=== PATIENT | male | born 1970 | race Caucasian/White ===

== ENCOUNTER 2021-06-29 21:57 | Inpatient (IN) | payer OTHER ==
[~2021-06-29] VITALS: Ht 185.4 cm; Wt 99.8 kg
[2021-06-29 22:00] VITALS: BP 149/71
--- NOTE | 2021-06-29 22:12 | NUR ---
TO ER BED 5
--- NOTE | 2021-06-29 22:15 | NUR ---
Patient being evaluated by physician at bedside.
--- NOTE | 2021-06-29 22:15 | NUR ---
51 Y/O MALE CAME TO THE ED C/O LEFT FLANK PAIN. PT STATES, "I'M IN SO MUCH PAIN, AND IT STARTED TODAY AND I'VE NEVER HAD THIS PAIN BEFORE. 10/10 LEFT SIDE IN THE LOWER BACK AREA PAIN. AND I HAD NAUSEA AND VOMITTING TODAY. " PT IS VERY RESTLESS, DENIES FEVER, CHILLS. PT IS DIAPHORETIC. AAOX4 WITH EVEN AND STEADY GAIT; LUNGS CLEAR BL; HR EVEN AND REGULAR; PT DENIES ANY CP, SOB, OR COUGH AT THIS TIME; PATIENT STATES PAIN OF 10/10 AT THIS TIME; VSS; PATIENT POSITIONED FOR COMFORT; HOB ELEVATED; BEDRAILS UP X2; BED DOWN. ER MD MADE AWARE OF PT STATUS. NKA PMH: DENIES
[2021-06-29] MEDS ORDERED: NACL 0.9% 1,000 ML IV SCH (22:20)
[2021-06-29] MEDS ORDERED: MORPHINE SULFATE 2 MG/ML SYR IVP ONE (22:20)
[2021-06-29] MEDS ORDERED: ONDANSETRON 4 MG/2 ML VIAL IVP ONE (22:20)
[2021-06-29] MEDS ORDERED: KETOROLAC 30 MG/ML VIAL IVP ONE (22:20)
[2021-06-29 22:39] LABS: BASOPHILS % (AUTO) 0.2 % (0.0-2.0); EOSINOPHILS # (AUTO) 0.1 K/uL (0-0.4); EOSINOPHILS % (AUTO) 0.5 % (0.0-4.0); HEMATOCRIT 45.8 % (36-52); HEMOGLOBIN 15.8 g/dL (12.0-18.0); LYMPHOCYTES # (AUTO) 1.4 K/uL (2.0-11.5); LYMPHOCYTES % (AUTO) 10.4 % (20.5-51.1); MEAN CORPUSCULAR HEMOGLOBIN 32 pg (27-31); MEAN CORPUSCULAR HGB CONC 35 g/dL (33-37); MEAN CORPUSCULAR VOLUME 93.1 fL (80-94); MONOCYTES # (AUTO) 1.1 K/uL (0.8-1.0); MONOCYTES % (AUTO) 8.8 % (1.7-9.3); NEUTROPHILS # (AUTO) 10.5 K/uL (1.8-7.7); NEUTROPHILS % (AUTO) 80.1 % (42.2-75.2); PLATELET COUNT (AUTO) 184 K/uL (140-450); RED BLOOD CELL COUNT(AUTO) 4.92 MIL/uL (4.20-6.10); WHITE BLOOD COUNT (AUTO) 13.1 K/uL (4.8-10.8)
[2021-06-29 22:52] LABS: ANION GAP 14.1 (8-16); CARBON DIOXIDE 25.5 mmol/L (21-32); CREATININE 1.4 mg/dL (0.6-1.3); POTASSIUM 3.6 mmol/L (3.5-5.1); TOTAL BILIRUBIN 1.1 mg/dL (0.0-1.0)
[2021-06-30] MEDS ORDERED: MORPHINE SULFATE 2 MG/ML SYR IVP ONE (00:10)
[2021-06-30] MEDS ORDERED: NACL 0.9% 1,000 ML IV ONE ×2 (00:10)
[2021-06-30] MEDS ORDERED: NACL 0.9% 1,000 ML IV SCH (00:15)
[2021-06-30] MEDS ORDERED: ONDANSETRON 4 MG/2 ML VIAL IVP STA (01:12)
[2021-06-30] MEDS ORDERED: ONDANSETRON 4 MG/2 ML VIAL ONE (01:13)
[2021-06-30] MEDS ORDERED: MORPHINE SULFATE 4 MG/ML SYR ONE (01:13)
[2021-06-30] MEDS ORDERED: cefTRIAXone 1,000 MG VIAL ONE (01:35)
--- NOTE | 2021-06-30 02:00 | NUR ---
PT IS IN BED RESTING WITH EYES CLOSED, NORMAL SALINE RUNNING ORDERED. ALL UNIVERSAL FALLS PRECAUTIONS IN PLACE. Addendum: 07/01/21 at 0231 by Sherron Rosado RN WRONG DATE SHOULD BE 07/01/21
--- NOTE | 2021-06-30 03:00 | NUR ---
Patient appears to be resting comfortably in bed. Vital Signs within normal limits. Respirations even and unlabored.
--- NOTE | 2021-06-30 06:00 | NUR ---
PT IS RESTING IN BED COMFOTABLY. OBTAINED VITAL SIGNS. VITAL SIGNS STABLE. ALL NEEDS MET AT THIS TIME
--- NOTE | 2021-06-30 07:21 | NUR ---
GIVEN REPORT TO DONNA LIM, FOR CONTINUITY OF CARE.
[2021-06-30 07:23] LABS: ALBUMIN 3.2 g/dL (3.4-5.0); ANION GAP 11.1 (8-16); CARBON DIOXIDE 26.1 mmol/L (21-32); CREATININE 1.5 mg/dL (0.6-1.3); POTASSIUM 4.2 mmol/L (3.5-5.1)
--- NOTE | 2021-06-30 07:30 | NUR ---
URINE WAS COLLECTED, CARLY WAS SWABBED, BOTH SAMPLES SENT TO LAB.
[2021-06-30] MEDS ORDERED: MORPHINE SULFATE 4 MG/ML SYR IVP ONE (08:30)
[2021-06-30] MEDS ORDERED: ONDANSETRON 4 MG/2 ML VIAL IVP PRN (09:10)
[2021-06-30] MEDS ORDERED: LORazepam 2 MG/ML VIAL IM/IVP PRN (09:10)
[2021-06-30] MEDS ORDERED: ZOLPIDEM 5 MG TAB PO PRN (09:10)
[2021-06-30] MEDS ORDERED: HYDROcodone/APAP 5/325 MG 1 TAB TAB PO PRN (09:10)
[2021-06-30] MEDS ORDERED: ACETAMINOPHEN 325 MG TAB PO PRN (09:10)
[2021-06-30] MEDS ORDERED: DOCUSATE SODIUM 100 MG GELCAP PO PRN (09:10)
[2021-06-30 09:19] LABS: APPEARANCE,URINE CLEAR (CLEAR); BILIRUBIN,URINE NEGATIVE (NEGATIVE); BLOOD, URINE TRACE-L (NEGATIVE); COLOR,URINE YELLOW (YELLOW); LEUKOCYTE ESTERASE ,URINE NEGATIVE (NEGATIVE); NITRITE, URINE NEGATIVE (NEGATIVE); PH,URINE 5.5 (5.0-9.0); UGLUCOSE NEGATIVE (NEGATIVE)
[2021-06-30 09:30] LABS: RBC,URINE 0-5 /HPF (0-5); WBC,URINE 0-5 /HPF (0-5)
[2021-06-30] MEDS: NACL 0.9% 1,000 ML IV SCH ×3 (09:35→23:47)
--- NOTE | 2021-06-30 10:17 | NUR ---
Patient appears to be resting comfortably in bed. Vital Signs within normal limits. Respirations even and unlabored.
--- NOTE | 2021-06-30 10:27 | NUR ---
LAB AT BEDSIDE FOR REPEAT DRAWS. SEKOU CAGE SHIFT MANAGER ([phone]) STATES DR WILL BE IN CONTACTED WITH IMELDA.
[2021-06-30 11:04] LABS: BASOPHILS % (AUTO) 0.1 % (0.0-2.0); EOSINOPHILS # (AUTO) 0.1 K/uL (0-0.4); EOSINOPHILS % (AUTO) 1.3 % (0.0-4.0); HEMATOCRIT 46.3 % (36-52); HEMOGLOBIN 15.7 g/dL (12.0-18.0); LYMPHOCYTES % (AUTO) 13.4 % (20.5-51.1); MEAN CORPUSCULAR HEMOGLOBIN 32 pg (27-31); MEAN CORPUSCULAR HGB CONC 34 g/dL (33-37); MEAN CORPUSCULAR VOLUME 94.3 fL (80-94); MONOCYTES # (AUTO) 1.1 K/uL (0.8-1.0); NEUTROPHILS # (AUTO) 5.5 K/uL (1.8-7.7); NEUTROPHILS % (AUTO) 71.2 % (42.2-75.2); PLATELET COUNT (AUTO) 168 K/uL (140-450); RED BLOOD CELL COUNT(AUTO) 4.91 MIL/uL (4.20-6.10); WHITE BLOOD COUNT (AUTO) 7.7 K/uL (4.8-10.8)
[2021-06-30 11:18] LABS: ALBUMIN 3.5 g/dL (3.4-5.0); ANION GAP 10.9 (8-16); CARBON DIOXIDE 29.7 mmol/L (21-32); CREATININE 1.3 mg/dL (0.6-1.3); POTASSIUM 3.6 mmol/L (3.5-5.1); TOTAL BILIRUBIN 1.1 mg/dL (0.0-1.0)
[2021-06-30 11:24] LABS: CHOL/HDL RATIO 3.8 (1-4.5); FREE T4 (FREE THYROXINE) 0.74 ng/dL (0.76-1.46); MAGNESIUM 1.8 mg/dL (1.8-2.4); PHOSPHORUS 2.7 mg/dL (2.5-4.9); THYROID STIMULATING HORMONE 1.15 uIU/mL (0.34-3.74)
--- NOTE | 2021-06-30 11:34 | NUR ---
Patient will be admitted to care of LUIZA HERBERT. Admited to [facility]. Will go to room 105B. Belongings list completed. Report to SNOW LIM.
--- NOTE | 2021-06-30 11:38 | NUR ---
GURDEEP CONTACTED FOR ADMISSION, LEFT VOICEMAIL.
--- NOTE | 2021-06-30 11:40 | NUR ---
RECEIVED REPORT FROM ER NURSE FOR CONTINUITY OF CARE. WILL WAIT FOR PT TO ARRIVE TO UNIT.
--- NOTE | 2021-06-30 12:00 | NUR ---
PT HAS ARRIVED TO UNIT VIA GURNEY. PT AMBULATED TO BED WITH STEADY GAIT. A&OX4, AWAKE AND ALERT. ON RA WITH BREATHING UNLABORED. PT IS MED SURG. SKIN IS WARM, DRY, AND INTACT. PT DENIES PAIN. IV IS IN THE RIGHT AC 20 GAUGE RUNNING NS AT 100 ML PER HOUR. PT IS STABLE. PLAN OF CARE DISCUSSED.
[2021-06-30] MEDS: MORPHINE SULFATE 2 MG/ML SYR IVP PRN (12:21)
--- NOTE | 2021-06-30 12:21 | NUR ---
PT STATES HE HAS PAIN AT A SCALE OF 8/10 IN THE LOWER ABDOMEN. PT STATES THE PAIN IS ACHING IN CHARACTERISTIC. PT WAS GIVEN MORPHINE FOR PAIN. BP WAS 143/40 PRIOR TO ADMINISTRATION OF MEDICATION. MEDICATION EDUCATION WAS PROVIDED AND PT VERBALIZED UNDERSTANDING. PT ALSO STATED HE WAS FEELING NAUSEOUS AND WAS GIVEN ZOFRAN FOR NAUSEA. WILL CONTINUE TO MONITOR PT.
--- NOTE | 2021-06-30 12:34 | NUR ---
MESSAGED DR. JARRETT TO ASK ABOUT DIET ORDER. SHE GAVE A TELEPHONE ORDER FOR CCHO 60 GRAM DIET. PT WAS GIVEN CCHO 60 GRAM TRAY FOR LUNCH.
[2021-06-30] MEDS ORDERED: PHENAZOPYRIDINE 100 MG TAB PO SCH (13:00)
--- NOTE | 2021-06-30 13:30 | NUR ---
NEW ORDER TO STRAIN URINE. EDUCATION WAS PROVIDED TO PT ABOUT IMPORTANCE OF STRAINING URINE FOR CALCULUS. PT ACKNOWLEDGED UNDERSTANDING. URINAL WAS PLACED AT BEDSIDE.
[2021-06-30] MEDS: TAMSULOSIN 0.4 MG CAP PO SCH (15:16)
[2021-06-30] MEDS ORDERED: ESCI5TAB PO (15:27)
--- NOTE | 2021-06-30 15:30 | NUR ---
PT IS AWAKE AND ALERT. NO DISTRESS NOTED ON RA. PT DENIES PAIN AT THIS TIME. URINE WAS STRAINED AND NO CALCULUS WAS APPARENT.
--- NOTE | 2021-06-30 15:55 | NUR ---
PATIENT HAS BEEN SCREENED AND CATEGORIZED LOW NUTRITION RISK. PATIENT WILL BE SEEN WITHIN 7 DAYS OF ADMISSION. 07/06/[address]
[2021-06-30 16:00] VITALS: BP 111/66
--- NOTE | 2021-06-30 16:34 | NUR ---
DC PLANNING: CLINICAL REVIEW LEFT ON VM OF NATA MALDONADO, PHONE NUMBER [phone]. BRETT WILL FOLLOW FOR NEEDS.
[2021-06-30 17:03] LABS: BARBITURATE, URINE NEGATIVE ng/ml (NEG <=200); BENZODIAZEPINE, URINE NEGATIVE ng/mL (NEG <=200); CANNABINOID, URINE POSITIVE ng/mL (NEG <=50); COCAINE, URINE NEGATIVE ng/mL (NEG <=300); OPIATE, URINE POSITIVE ng/mL (NEG <=2000); PHENCYCLIDINE SCREEN,URINE NEGATIVE ng/mL (NEG <=25)
--- NOTE | 2021-06-30 17:30 | NUR ---
ROUNDED ON PT. HE IS AWAKE ON CELL PHONE. PT IS STABLE AT THIS TIME. DENIES PAIN. VOIDED AGAIN AND URINE WAS STRAINED WITH NO CALCULUS NOTED.
--- NOTE | 2021-06-30 19:10 | NUR ---
ENDORSED PT TO CATTLE DEHORNER NURSE FOR CONTINUITY. PT IS STABLE. PLAN OF CARE DISCUSSED.
--- NOTE | 2021-06-30 19:30 | NUR ---
RECEIVED ENDORSEMENT FROM DANISH LIM DAYSHIFT NURSE AT BEDSIDE FOR CONTINUITY OF CARE, PT IN STABLE CONDITION.
[2021-06-30 20:00] VITALS: BP 116/69
--- NOTE | 2021-06-30 20:00 | NUR ---
PT LYING IN BED AOX4 ON ROOM AIR HE HAS A RAC 20 G RUNNING NORMAL SALINE AT 100MLS/HR. V/S FOLLOWS: T 97.0 P 66 R 20 B/P 116/69 02 95% ON ROOM AIR. PT DENIES ANY PAIN AT THIS TIME. PT WONDERING ABOUT UROLOGY CONSULT, WILL FOLLOW UP.
--- NOTE | 2021-06-30 21:55 | NUR ---
TEXTED MD JARRETT REGARDING PT REQUEST FOR UROLOGY CONSULT. OK TO ORDER CONSULT FOR KAREEN. CONSULT ADDED AND MD MATHUR MADE AWARE AND WILL SEE PT IN THE AM. PT KNOWS TO STRAIN THE URINE FOR KIDNEY STONE. PT SAYS HE HAS SOME PAIN BUT IT IS TOLERABLE AT THIS TIME.
--- NOTE | 2021-07-01 | NUR ---
PT AWAKE AND C/O OF SLEEPLESSNESS REQUESTED AND WAS GIVEN PO/PRN AMBIEN. ALSO NORMAL SALINE BAG OF FLUID IS EMPTY AND A NEW BAG OF FLUIDS REPLACED.
--- NOTE | 2021-07-01 02:00 | NUR ---
PT IS IN BED RESTING WITH EYES CLOSED, NORMAL SALINE RUNNING ORDERED. ALL UNIVERSAL FALLS PRECAUTIONS IN PLACE.
[2021-07-01 04:00] VITALS: BP 116/70
--- NOTE | 2021-07-01 06:00 | NUR ---
PT UP TO TOILET AND BACK TO BED URINE BEING STRAINED BY PT NO PASSING OF THE STONE YET PT HAS NO C/O OF PAIN. PT TOLERATING FLUIDS WELL. ALL UNIVERSAL FALLS PRECAUTIONS IN PLACE AND N/S RUNNING AT 100MLS/HR ORDERED.
--- NOTE | 2021-07-01 07:30 | NUR ---
RECEIVED REPORT FROM NIGHT NURSE. WILL CONTINUE PLAN OF CARE.
[2021-07-01 07:45] LABS: ANION GAP 8.7 (8-16); CARBON DIOXIDE 27.9 mmol/L (21-32); CREATININE 1.1 mg/dL (0.6-1.3); POTASSIUM 3.6 mmol/L (3.5-5.1)
[2021-07-01 07:47] LABS: BASOPHILS % (AUTO) 0.2 % (0.0-2.0); EOSINOPHILS # (AUTO) 0.1 K/uL (0-0.4); EOSINOPHILS % (AUTO) 2.3 % (0.0-4.0); HEMATOCRIT 38.9 % (36-52); HEMOGLOBIN 13.8 g/dL (12.0-18.0); LYMPHOCYTES # (AUTO) 1.7 K/uL (2.0-11.5); MEAN CORPUSCULAR HEMOGLOBIN 33 pg (27-31); MEAN CORPUSCULAR HGB CONC 35 g/dL (33-37); MEAN CORPUSCULAR VOLUME 92.3 fL (80-94); MONOCYTES # (AUTO) 0.9 K/uL (0.8-1.0); NEUTROPHILS # (AUTO) 3.6 K/uL (1.8-7.7); NEUTROPHILS % (AUTO) 56.5 % (42.2-75.2); PLATELET COUNT (AUTO) 143 K/uL (140-450); RED BLOOD CELL COUNT(AUTO) 4.22 MIL/uL (4.20-6.10); RED CELL DISTRIBUTION WIDTH 12.9 % (11.6-13.7); WHITE BLOOD COUNT (AUTO) 6.4 K/uL (4.8-10.8)
[2021-07-01 08:01] LABS: MAGNESIUM 1.8 mg/dL (1.8-2.4); PHOSPHORUS 2.1 mg/dL (2.5-4.9)
[2021-07-01] MEDS: TAMSULOSIN 0.4 MG CAP PO SCH (08:17)
[2021-07-01] MEDS: MORPHINE SULFATE 2 MG/ML SYR IVP PRN (08:24)
--- NOTE | 2021-07-01 08:25 | NUR ---
ADMINISTERD SCHEDULED MEDICATIONS PER MD ORDER. EDUCATED PT ON MEDICATIONS MOA AND SIDE EFFECTS. PT VERBALIZED UNDERSTANDING. PT HAD A NAVA RATED A 7 OUT OF 10 THAT STARTED AN HOUR AGO. PT DESCRIBES IT THROBBING. ADMINISTERED 2MG OF MORPHINE SULFATE IVP. BP WAS 127/82 [place]:66 . PT IS IN BED RESTING COMFORTABLY AND KNOWS HOW TO USE THE CALL LIGHT. SAFETY PRECAUTIONS ARE IN PLACE. WILL RE ASSESS PAIN IN 30 MINUTES.
[2021-07-01] MEDS ORDERED: ESCITALOPRAM 20 MG TAB PO SCH (09:00)
[2021-07-01] MEDS ORDERED: CIPR500T9 PO (09:31)
[2021-07-01] MEDS ORDERED: TAMS0.4C96 PO (09:31)
[2021-07-01] MEDS ORDERED: IBUP-1842 PO (09:31)
[2021-07-01 13:17] VITALS: BP 127/89
--- NOTE | 2021-07-01 14:00 | NUR ---
PT WAS DISCHARGED HOME. PT WAS PROVIDED WITH A DISCHARGE PACKET AND EDUCATION REGARDING DISCHARGE. PT WAS EDUCATED ON FOLLOWING UP WITH PCP WITHIN 7 DAYS OF DISCHARGE. PT WAS EDUCATED ON WHEN TO SEEK MEDICAL TREATMENT. PT WAS EDUCATED ON THE MEDICATIONS THAT WERE PRESCRIBED, TO INCLUDE MOA AND SIDE EFFECTS. PT WAS EDUCATED ON THE DIET TO KEEP AND EXERCISING TOLERATED. PT VERBALIZED UNDERSTANDING. IV CATHETER WAS DC'D. IV CATHETER WAS INTACT. APPLIED A 2X2 GAUZE AFTER IV REMOVAL. PT WAS ABLE TO DRESS SELF. REMOVED ID BAND. PT WAS WHEELDOWN BY WHEELCHAIR TO FRONT LOBBY AND PICKED UP BY MOTHER. WILL END PLAN OF CARE.
== END 2021-07-01 14:00 | disposition home or self-care (01) | DRG 694 ==
LOC: MED 21:57 → UNDOADMIN 06-30 00:17 → MTU 06-30 00:17
PROVIDERS: ADMIT Family Medicine; ATTEND Family Medicine
DX: N20.1 Calculus of ureter (principal); Z87.442 Personal history of urinary calculi; Z20.822 Contact with and (suspected) exposure to COVID-19; N13.9 Obstructive and reflux uropathy, unspecified; E78.5 Hyperlipidemia, unspecified; E03.9 Hypothyroidism, unspecified; K44.9 Diaphragmatic hernia without obstruction or gangrene; K42.9 Umbilical hernia without obstruction or gangrene; K57.30 Diverticulosis of large intestine without perforation or abscess without bleeding; Z71.51 Drug abuse counseling and surveillance of drug abuser; D72.820 Lymphocytosis (symptomatic); F12.10 Cannabis abuse, uncomplicated; F11.10 Opioid abuse, uncomplicated
CPT/HCPCS: 36415; 71045; 80048; 80053; 80305; 81001; 82150; 83036; 83605; 83690; 83735; 83880; 84100; 84439; 84443; 84484; 85025; 85610; 85730; 87040; 87081; 87086; 96361; 96365; 96375; 96376; 99285; J0696; J1885; J2270; J2405; J7060